=== PATIENT | female | born 1995 | race Hispanic/Latino ===

== ENCOUNTER 2024-05-28 22:30 | Emergency (ER) | payer OTHER ==
--- OUTSIDE RECORDS SUMMARY | 2024-05-28 22:35 | XMS REPORT | Continuity of Care Document ---
Author Name Unknown Address [address] [facility] [place] [address] [facility] Address [address] [facility] [address] [place] [address] Care Team Providers Care Ceo And Co Founder Name Role Phone Hernando Delgadillo Anna Primary Care Physicia n Porsha Aguilar MA Attending Clinician Unavail able EDWIN BREWER Attending Clinician Unavailable MD SOFIE Attending Clinician Unavailab DARRYL Monte Attending Clinician Unavailable LAB90 Attending Clinician Unavailable SHANTELL ROSALES Attending Clinician Unavailable TRACEY STOVER Attending Clinician Unavailable SHERI TENORIO Attending Clinician Unavailable RYNE SCHMIDT Attending Clinician Unavailable LAB47 Attending Clinician Unavailable GINA BARAJAS Attending Clinician Unavailable NAT HOWELL Attending Clinician Unavailable COLT STOVER Attending Clinician Unavailable ANDRE VALDEZ Attending Clinician UnaYESENIA Wilkerson Attending Clinician Unavailable FRANKI CID Attending Clinician Unavailable SETH JAMESON Attending Clinician Unavailab Seth Barreto Attending Clinician [phone] Doctor Unassigned, [place] Attending Clinician U BLAKE Kinsey Attending Clinician Unavailable [facility]ending [facility] Unadestiny Amado ALINE, Hernando Castillo Attending Clinician + HERNANDO AMADO Attending Clinician Unavail able CAROLINE PEDRO Attending Clinician Unav ailarsenio Rendon RN, Lamar Attending Clinician Unavailabl e Risk, Aol-Hxeio-Cj/High Attending Clinician Unav ailable [facility] Pope Attending Clinician [phone] Faculty, Doc [facility] Attending Clinician Kelley Gamez MD, Edwin Devlin Attending Clinician [phone] Ultrasound, [facility] Attending Clinician Unavaildawna Tapia MD, Caroline Attending Clinician + Barbara Clements MD Attending Clinician [phone] Tara Valderrama MD Attending Clinician [phone] Beverly Herr MD Attending Clinician [phone], [facility] Us Room Attending Clinician Unavailab BEVERLY Chahal Attending Clinician Unavailable [facility] Unavaila Chante Gimenez Attending Clinician [phone] Kaley KUHN, Ronda Toney Attending Clinician [phone] CAROLINE PEDRO Admitting Clinician Unav ailarsenio Payers Payer Name Policy Type Policy Number Effective Date Expirati on Date Source SHANT MEJIA [employer] 94 ON 9 [id number] 2023 00:00:00 MEDICAID PENDING PENDING 2019 00:00:00 Problems Condition Name Condition Details Condition Category Status Onset Date Resolution Date Last Treatment Date Treating Clinician Comments Source Iron deficiency anemia due to chronic blood loss Iron deficiency anemia due to chronic blood loss Disease Active 3-14 00:00: 00 Cata magallanes Prediabete s Prediabete s Disease Active 4-16 00:00: 00 Cata Seybold - Externa l Vitamin D deficiency Vitamin D deficiency Disease Active 4-16 00:00: 00 Cata ybold - Externa l History of bilateral tubal ligation History of bilateral tubal ligation Disease Active 3-29 00:00: 00 [facility] 37 weeks gestation of 37 weeks gestation of Disease Active 2-10 00:00: 00 [facility] History of COVID-19 History of COVID-19 Disease Active 1- 00:00: 00 [facility] Monochorio giuliano diamniotic twin gestation in third trimester Monochorio giuliano diamniotic twin gestation in third trimester Disease Active 2019-02 2- 00:00: 00 [facility] Need for Tdap vaccinatio n Need for Tdap vaccinatio n Disease Active 2019-02 00:00: 00 [facility] BMI 28.0-28.9, adult BMI 28.0-28.9, adult Disease Active 8- 00:00: 00 [facility] BMI 28.0-28.9, adult BMI 28.0-28.9, adult Disease Active 8 00:00: 00 [facility] Previous delivery affecting , antepartum Previous delivery affecting , antepartum Disease Active 03-10 00:00: 00 [facility] History of History of Disease Active 03-10 00:00: 00 [facility] Anemia of mother in , antepartum Anemia of mother in , antepartum Disease Active 09-22 00:00: 00 [facility] Anemia of mother in , antepartum Anemia of mother in , antepartum Disease Recurre nce 09-22 00:00: 00 [facility] Multiparit y Multiparit y Disease Recurre nce 09-21 00:00: 00 [facility] Supervisio n of high risk , antepartum Supervisio n of high risk , antepartum Disease Recurre nce 09-21 00:00: 00 [facility] Desires (vaginal after ) trial Desires (vaginal after ) trial Disease Recurre nce 8-08 00:00: 00 [facility] Screening examinatio n for STD (sexually transmitte d disease) Screening examinatio n for STD (sexually transmitte d disease) Disease Active 08-14 00:00: 00 Overview: Formattin g of this note might be different from the original. ICD10 Diagnosis Term Right Of Way Agent Utility [facility] Encounter for surveillan ce of other contracept nivia Encounter for surveillan ce of other contracept nivia Disease Active 08-14 00:00: 00 Overview: Formattin g of this note might be different from the original. ICD10 Diagnosis Term Right Of Way Agent Utility [facility] Anemia of mother in , condition Anemia of mother in , condition Disease Active 07-13 00:00: 00 [facility] care and examinatio n of lactating mother care and examinatio n of lactating mother Disease Active 5 00:00: 00 [facility] Twin gestation in first trimester, unspecifie d multiple gestation type Twin gestation in first trimester, unspecifie d multiple gestation type Disease Resolve d 8-10 00:00: 00 2020-03-09 00:00:00 2020-03-09 15:00:07 [facility] Contracept nivia management Contracept nivia management Disease Resolve d 2017-02 0 00:00: 00 2020-03-09 00:00:00 2020-03-09 14:59:59 [facility] Depo-Prove ra contracept nivia status Depo-Prove ra contracept niiva status Disease Resolve d 2017-02 0 00:00: 00 2020-03-09 00:00:00 2020-03-09 15:00:01 [facility] Routine follow-up Routine follow-up Disease Resolve d 2017-02 0 00:00: 00 2020-03-09 00:00:00 2020-03-09 14:59:57 [facility] Nausea and vomiting during prior to 22 weeks gestation Nausea and vomiting during prior to 22 weeks gestation Disease Resolve d 0 9-06 00:00: 00 2020-03-09 00:00:00 2020-03-09 14:59:48 [facility] 39 weeks gestation of 39 weeks gestation of Disease Resolve d 2017-0 9-15 00:00: 00 2017-11-21 00:00:00 2017-11-21 11:51:24 [facility] Anemia of mother in , antepartum Anemia of mother in , antepartum Disease Resolve d 2017-0 6-12 00:00: 00 2017-11-21 00:00:00 2017-11-21 11:51:25 [facility] Multiparit y Multiparit y Disease Resolve d 0 1-25 00:00: 00 2017-11-21 00:00:00 2017-11-21 11:51:29 [facility] Normal spontaneou s vaginal delivery Normal spontaneou s vaginal delivery Disease Resolve d 0 3-28 00:00: 00 2017-11-21 00:00:00 2017-11-21 11:51:31 [facility] cardiac echogenic focus cardiac echogenic focus Disease Resolve d 0 4-30 00:00: 00 2017-10-31 00:00:00 2017-10-31 08:13:58 [facility] Nausea and vomiting during prior to 22 weeks gestation Nausea and vomiting during prior to 22 weeks gestation Disease Resolve d 0 2-26 00:00: 00 2017-10-31 00:00:00 2017-10-31 08:14:00 [facility] Other general counseling and advice for contracept nivia management Other general counseling and advice for contracept nivia management Disease Resolve d 2016-0 5-15 00:00: 00 2017-03-10 00:00:00 2017-03-10 15:23:06 [facility] Susceptibl e to varicella (non-immun e), currently Susceptibl e to varicella (non-immun e), currently Disease Resolve d 0 8-10 00:00: 2017-03-10 00:00:00 2021-08-30 00:41:45 [facility] Anemia of mother in , condition Anemia of mother in , condition Disease Resolve d 06-07 00:00: 00 2016-06-28 00:00:00 2016-06-28 14:29:34 [facility] care and examinatio n of lactating mother care and examinatio n of lactating mother Disease Resolve d 06-07 00:00: 00 2016-06-28 00:00:00 2016-06-28 14:29:32 [facility] Anemia, Anemia, Disease Resolve d 05-12 00:00: 00 2016-06-07 00:00:00 2016-06-07 09:56:31 [facility] Maternal varicella, non-immune Maternal varicella, non-immune Disease Resolve d 05-11 00:00: 00 2016-06-07 00:00:00 2016-06-07 09:56:05 [facility] Laceration of labial mucosa without complicati on Laceration of labial mucosa without complicati on Disease Resolve d 05-11 00:00: 00 2016-06-07 00:00:00 2016-06-07 09:56:07 [facility] Single live Single live Disease Resolve d 05-11 00:00: 00 2016-06-07 00:00:00 2016-06-07 09:56:10 [facility] Acute urinary retention Acute urinary retention Disease Resolve d 05-11 00:00: 00 2016-06-07 00:00:00 2021-08-30 00:44:59 [facility] Teenage parent Teenage parent Disease Resolve d 05-11 00:00: 00 2016-06-07 00:00:00 2016-06-07 09:56:27 [facility] with history of section, antepartum with history of section, antepartum Disease Resolve d 808 00:00: 00 2016-06-07 00:00:00 2021-08-30 00:41:43 [facility] Disease Resolve d 05-11 00:00: 00 2016-05-11 00:00:00 2016-05-11 15:47:49 [facility] H/O section H/O section Disease Resolve d 05-11 00:00: 00 2016-05-11 00:00:00 2016-05-11 01:51:13 [facility] Contracept nivia management Contracept nivia management Disease Resolve d 08-10 00:00: 00 2015-09-22 00:00:00 2015-09-22 14:48:58 [facility] Breakthrou gh bleeding on Nexplanon Breakthrou gh bleeding on Nexplanon Disease Resolve d 08-14 00:00: 00 2015-09-22 00:00:00 2015-09-22 14:48:57 [facility] Nexplanon removal Nexplanon removal Disease Resolve d 08-10 00:00: 00 2015-09-08 00:00:00 2015-09-08 11:49:04 [facility] Nexplanon in place Nexplanon in place Disease Resolve d 08-14 00:00: 00 2015-08-11 00:00:00 2015-08-11 10:30:39 [facility] Nexplanon insertion Nexplanon insertion Disease Resolve d 03-18 00:00: 00 2014-08-14 00:00:00 2014-08-14 16:14:02 [facility] Depo-Prove ra contracept nivia status Depo-Prove ra contracept nivia status Disease Resolve d 30 00:00: 00 2014-03-18 00:00:00 2014-03-18 09:04:16 [facility] S/P S/P Disease Resolve d 5-15 00:00: 00 2014-03-18 00:00:00 2014-03-18 09:04:08 [facility] Axillary mass Axillary mass Disease Resolve d 5-13 00:00: 00 2014-03-18 00:00:00 2014-03-18 09:04:18 [facility] Ectopic breast tissue Ectopic breast tissue Disease Resolve d 5-13 00:00: 00 2014-03-18 00:00:00 2014-03-18 09:04:14 [facility] Maternal varicella, non-immune Maternal varicella, non-immune Disease Resolve d 0 -17 00:00: 00 2014-03-18 00:00:00 2021-08-30 00:26:31 [facility] Engorgemen t of breasts, condition or complicati on Engorgemen t of breasts, condition or complicati on Disease Resolve d 5-13 00:00: 00 2013-08-10 00:00:00 2013-08-10 10:17:29 [facility] Post-opera tive pain Post-opera tive pain Disease Resolve d 5-15 00:00: 00 2013-07-13 00:00:00 2013-07-13 11:30:41 [facility] Uterine inertia Uterine inertia Disease Resolve d - 00:00: 00 2013-07-13 00:00:00 2013-07-13 11:05:37 [facility] Threatened premature labor, antepartum (644.03) Threatened premature labor, antepartum (644.03) Disease Resolve d 5- 00:00: 00 2013-07-13 00:00:00 2013-07-13 11:26:16 [facility] Pain pelvic Pain pelvic Disease Resolve d 3-18 00:00: 00 2013-07-13 00:00:00 2013-07-13 11:26:28 [facility] High-risk High-risk Disease Resolve d 9-16 00:00: 00 2013-07-13 00:00:00 2021-08-30 00:26:30 [facility] Teen Teen Disease Resolve d 0 9-16 00:00: 00 2013-07-13 00:00:00 2013-07-13 11:26:18 [facility] Irregular menstrual cycle Irregular menstrual cycle Disease Resolve d 10-30 00:00: 00 2013-05-01 00:00:00 2013-05-01 12:56:16 [facility] Flu vaccine need Flu vaccine need Disease Resolve d 10-30 00:00: 00 2013-05-01 00:00:00 2021-08-30 00:26:30 [facility] Rubella immune Rubella immune Disease Resolve d 10-30 00:00: 00 2013-05-01 00:00:00 2013-05-01 12:56:19 [facility] Hyperemesi s gravidarum with metabolic disturbanc e, antepartum Hyperemesi s gravidarum with metabolic disturbanc e, antepartum Disease Resolve d 2012-0203 00:00: 00 2013-02-09 00:00:00 2013-02-09 17:32:10 [facility] Encounter for emergency contracept nivia counseling and prescripti on Encounter for emergency contracept nivia counseling and prescripti on Disease Resolve d 06-15 00:00: 00 2012-10-30 00:00:00 2012-10-30 16:22:09 [facility] Allergies, Adverse Reactions, Alerts Allergy Name Allergy Type Status Severity Reaction(s) Onset Date Inactive Date Treating Clinician Comments Source NO KNOWN ALLERGIE S Drug Class Active [facility] Social History Social Habit Start Date Stop Date Quantity Comments Source ASSERTION [facility] Savanah Delgadillo - External History of tobacco use Cigarette Smoker Cata spring - External Alcohol Comment 2023-06-14 00:00:00 2023-06-14 00:00:00 socially Cata Delgadillo - External Tobacco use and exposure 2023-06-14 00:00:00 2023-06-14 00:00:00 Smokeless tobacco non-user Cata Delgadillo - External Alcohol intake 2023-05-09 00:00:00 2023-05-09 00:00:00 .14 /d Cata Delgadillo - External Exposure to SARS-CoV-2 (event) 2021-06-21 00:00:00 2021-07-01 09:15:00 Not sure [facility] History of Social function 2021-07-01 00:00:00 2021-07-01 00:00:00 [facility] Alcoholic beverage intake 2020-01-07 00:00:00 2020-01-07 00:00:00 0 /d [facility] Sex assigned at 1995 00:00:00 1995 00:00:00 Cata Llamas Smoking Status Start Date Stop Date Source Never smoked tobacco Cata Llamas Ex-smoker 2022-05-26 00:00:00 2022-05-26 00:00:00 Florentin xiao Leona Johnson External Medications Ordered Medication Name Filled Medication Name Start Date Stop Date Current Medication? Ordering Clinician Indication Dosage Frequency Signature (SIG) Comments Components Source Docusate Sodium 100 MG oral Capsule 09-18 00:00: 00 Yes [id number] 100mg QD Take 1 capsule (100 mg total) by mouth daily. Cata magallanes Ibuprofen (MOTRIN) 600 MG oral Tablet 09-18 00:00: 00 Yes [id number] 600mg Q.25D Take 1 tablet (600 mg total) by mouth every 6 hours as needed for pain. Cata magallanes Iron Dextran (INFED) 25 mg in sodium chloride 0.9 % 50 mL infusion 06-26 16:30: 00 06-26 16:12 :00 No [id number] 25mg 25 mg, at 300 mL/hr, Administer over 10 Minutes, intravenou s, ONCE, On Tue06/27/23 at 1130, For 1 dose, Observe the patient for at least 1 hour after test dose administra tion. Monitor and record vital signs at 15 minutes, 30 minutes, and 60 minutes for 1 hour observatio n. Cata magallanes Iron Dextran (INFED) 975 mg in sodium chloride 0.9 % 500 mL infusion 06-26 16:00: 00 06-26 18:19 :00 No [id number] 975mg 975 mg, at 500 mL/hr, Administer over 60 Minutes, intravenou s, ONCE, On Tue06/27/23 at 1100, For 1 dose, Give 60 minutes after test dose. Solumedrol is recommende d only if patient has: Asthma, or Allergy to more than one drug, or History of inflammato ry arthritis. Solu-Medro l is recommende d only if the patient has: None of the below. 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 Cata magallanes Tranexamic Acid 650 MG oral Tablet 03 00:00: 00 Yes Please take 2 tabs three times a day for 5 days at the start of your period. Cata magallanes Cholecalcif yvan (Vitamin D) 50 MCG (2000 UT) oral Capsule 30 00:00: 00 Yes [id number] 2000U QD Take 1 capsule (2,000 units total) by mouth daily. Cata magallanes Topiramate 25 MG oral Tablet 05-10 00:00: 00 Yes [id number] 25mg Q.5D Take 1 tablet (25 mg total) by mouth 2 times daily. Cata magallanes Ferrous Sulfate 325 (65 Fe) MG oral Tablet 04-13 10:58: 04 04-13 00:00 :00 No 325mg Take 1 tablet (325 mg total) by mouth daily (with breakfast) . Cata magallanes Ferrous Gluconate 239 (27 Fe) MG oral Tablet 04-13 00:00: 00 Yes [id number] 1{tbl} Take 1 tablet by mouth daily. Cata magallanes Topiramate 25 MG oral Tablet 04-13 00:00: 00 Yes [id number] 25mg Take 1 tablet (25 mg total) by mouth 2 times daily. Cata Caala elpidio Ferrous Sulfate 325 (65 Fe) MG oral Tablet 11-10 13:23: 02 Yes 325mg Take 1 tablet (325 mg total) by mouth daily (with breakfast) . Cata Caala elpidio Ferrous Sulfate 325 (65 Fe) MG oral Tablet 12 10:44: 40 Yes 325mg Take 1 tablet (325 mg total) by mouth daily (with breakfast) Cata magallanes Ferrous Sulfate 325 (65 Fe) MG oral Tablet 06-28 09:02: 40 Yes 325mg Take 1 tablet (325 mg total) by mouth daily (with breakfast) Cata magallanes Phentermine HCl 37.5 MG oral Tablet 06-28 00:00: 00 04-13 00:00 :00 No [id number] 37.5mg Take 1 tablet (37.5 mg total) by mouth every morning (before breakfast) Patient is taking 1/2 tab Cata magallanes Vitamin D, Ergocalcife rol, 1.25 MG (89782 UT) oral Capsule 05-30 00:00: 00 Yes [id number] 34561J Take 1 capsule (50,000 units total) by mouth once a week Cata magallanes Phentermine HCl 37.5 MG oral Tablet 05-27 00:00: 00 Yes [id number] 37.5mg Take 1 tablet (37.5 mg total) by mouth every morning (before breakfast) Cata magallanes No known medications 07-01 10:34: 28 No [facility] Immunizations Ordered Immunization Name Filled Immunization Name Date Status Comments Source TDAP 2020-02-11 00:00:00 Completed [facility] Tdap- (Boostrix, Adacel) 2020-02-11 00:00:00 Completed Cata Johnson External Tdap- (Boostrix, Adacel) 2020-02-11 00:00:00 Completed Cata Johnson External Tdap- (Boostrix, Adacel) 2020-02-11 00:00:00 Gaudencio Llamas Varicella (varivax)(chicken pox) 2016-05-12 00:00:00 Completed [facility] Varicella (varivax)(chicken pox) 2016-05-12 00:00:00 Completed [facility] Varicella Vaccine 2016-05-12 00:00:00 Completed Cata Seybold - External Varicella Vaccine 2016-05-12 00:00:00 Completed Cata Seybold - External Varicella Vaccine 2016-05-12 00:00:00 Completed Cata Seybold - External TDAP 2016-03-02 00:00:00 Completed [facility] TDAP 2016-03-02 00:00:00 Completed Tdap- (Boostrix, Adacel) 2016-03-02 00:00:00 Completed Cata Seybold - External Tdap- (Boostrix, Adacel) 2016-03-02 00:00:00 Completed Cata Seybold - External Tdap- (Boostrix, Adacel) 2016-03-02 00:00:00 Completed Cata Seybold - External Influenza Virus Vaccine Quad IM 3+ YRS 2015-11-17 00:00:00 Completed [facility] Influenza Virus Vaccine Quad IM 3+ YRS 2015-11-17 00:00:00 Completed Influenza Virus Vaccine, No Preserv, age 6 months and up 2015-11-17 00:00:00 Completed Cata Seybold - External Influenza Virus Vaccine, No Preserv, age 6 months and up 2015-11-17 00:00:00 Completed Cata Seybold - External Influenza Virus Vaccine, No Preserv, age 6 months and up 2015-11-17 00:00:00 Completed Cata Seybold - External Varicella (varivax)(chicken pox) 2013-08-10 00:00:00 Completed [facility] Varicella (varivax)(chicken pox) 2013-08-10 00:00:00 Completed Varicella Vaccine 2013-08-10 00:00:00 Completed Cata Seybold - External Varicella Vaccine 2013-08-10 00:00:00 Completed Cata Seybold - External Varicella Vaccine 2013-08-10 00:00:00 Completed Cata Seybold - External Varicella (varivax)(chicken pox) 2013-06-22 00:00:00 Completed [facility] Varicella (varivax)(chicken pox) 2013-06-22 00:00:00 Completed [facility] Varicella Vaccine 2013-06-22 00:00:00 Completed Cata Seybold - External Varicella Vaccine 2013-06-22 00:00:00 Completed Cata Seybold - External Varicella Vaccine 2013-06-22 00:00:00 Completed Cata Andrewsybold - External TDAP 2013-04-02 00:00:00 Completed [facility] TDAP 2013-04-02 00:00:00 Completed Tdap- (Boostrix, Adacel) 2013-04-02 00:00:00 Completed Cata Seybold - External Tdap- (Boostrix, Adacel) 2013-04-02 00:00:00 Completed Cata Seybold - External Tdap- (Boostrix, Adacel) 2013-04-02 00:00:00 Completed Cata Seybold - External Influenza Virus Vaccine 2012-10-30 00:00:00 Completed [facility] Influenza Virus Vaccine 2012-10-30 00:00:00 Completed [facility] Influenza Virus Vaccine, Unspecified Formulation 2012-10-30 00:00:00 Completed Cata Seybold - External Influenza Virus Vaccine, Unspecified Formulation 2012-10-30 00:00:00 Completed Cata Seybold - External Influenza Virus Vaccine, Unspecified Formulation 2012-10-30 00:00:00 Completed Cata Seybold - External H1n1 Vaccine 2009-01-13 00:00:00 Completed [facility] Influenza Virus Vaccine - Whole 2009-01-13 00:00:00 Completed [facility] H1n1 Vaccine 2009-01-13 00:00:00 Completed Influenza Virus Vaccine - Whole 2009-01-13 00:00:00 Completed Influenza, Seasonal, Injectable 2009-01-13 00:00:00 Completed Cata Andrewsybold - External [id number] 2009-01-13 00:00:00 Completed Cata Andrewsybold - External Influenza, Seasonal, Injectable 2009-01-13 00:00:00 Completed Cata Seybold - External [id number]-[id number] 2009-01-13 00:00:00 Completed Cata Seybold - External Influenza, Seasonal, Injectable 2009-01-13 00:00:00 Completed Cata Seybold - External [id number] 2009-01-13 00:00:00 Completed Cata Andrewsybold - External HPV 2008-10-24 00:00:00 Completed [facility] HPV 2008-10-24 00:00:00 Completed HPV 4 (Human Papillomavirus) 2008-10-24 00:00:00 Completed Cata Gibsonold - External HPV 4 (Human Papillomavirus) 2008-10-24 00:00:00 Completed Cata Seybold - External HPV 4 (Human Papillomavirus) 2008-10-24 00:00:00 Completed Cata Seybold - External HEPATITIS A- PEDI/ADOL 2008-06-07 00:00:00 Completed Cata Seybold - External Meningococcal Vaccine- Conjugate(Menactra) 2008-06-07 00:00:00 Completed Cata Seybold - External Tdap- (Boostrix, Adacel) 2008-06-07 00:00:00 Completed Cata Seybold - External HEPATITIS A- PEDI/ADOL 2008-06-07 00:00:00 Completed Cata Seybold - External Meningococcal Vaccine- Conjugate(Menactra) 2008-06-07 00:00:00 Completed Cata Seybold - External Tdap- (Boostrix, Adacel) 2008-06-07 00:00:00 Completed Cata Seybold - External HEPATITIS A- PEDI/ADOL 2008-06-07 00:00:00 Completed Cata Seybold - External Meningococcal Vaccine- Conjugate(Menactra) 2008-06-07 00:00:00 Completed Cata Seybold - External Tdap- (Boostrix, Adacel) 2008-06-07 00:00:00 Completed Cata Seybold - External HEPATITIS A 2007-10-03 00:00:00 Completed [facility] HPV 2007-10-03 00:00:00 Completed [facility] Meningococcal Vaccine 2007-10-03 00:00:00 Completed [facility] TDAP 2007-10-03 00:00:00 Completed [facility] Varicella (varivax)(chicken pox) 2007-10-03 00:00:00 Completed [facility] HEPATITIS A 2007-10-03 00:00:00 Completed HPV 2007-10-03 00:00:00 Completed Meningococcal Vaccine 2007-10-03 00:00:00 Completed TDAP 2007-10-03 00:00:00 Completed Varicella (varivax)(chicken pox) 2007-10-03 00:00:00 Completed HPV 4 (Human Papillomavirus) 2007-10-03 00:00:00 Completed Cata Seybold - External Meningococcal Vaccine Polysaccharide 2007-10-03 00:00:00 Completed Cata Gibsonold - External Tdap- (Boostrix, Adacel) 2007-10-03 00:00:00 Completed Cata Andrewsybold - External Varicella Vaccine 2007-10-03 00:00:00 Completed Cata Andrewsybold - External HEPATITIS A- PEDI/ADOL 2007-10-03 00:00:00 Completed Cata Andrewsybold - External HPV 4 (Human Papillomavirus) 2007-10-03 00:00:00 Completed Cata Andrewsybold - External Meningococcal Vaccine Polysaccharide 2007-10-03 00:00:00 Completed Cata Seybold - External Tdap- (Boostrix, Adacel) 2007-10-03 00:00:00 Completed Cata Andrewsybold - External Varicella Vaccine 2007-10-03 00:00:00 Completed Cata Andrewsybold - External HEPATITIS A- PEDI/ADOL 2007-10-03 00:00:00 Completed Cata Gibsonold - External HPV 4 (Human Papillomavirus) 2007-10-03 00:00:00 Completed Cata Delgadillo - External Meningococcal Vaccine Polysaccharide 2007-10-03 00:00:00 Completed Cata Andrewsybold - External Tdap- (Boostrix, Adacel) 2007-10-03 00:00:00 Completed Cata Andrewsybclementine - External Varicella Vaccine 2007-10-03 00:00:00 Completed Cata Andrewsybold - External HEPATITIS A- PEDI/ADOL 2007-10-03 00:00:00 Completed Cata Gibsonold - External HEPATITIS A 2006-09-23 00:00:00 Completed [facility] HPV 2006-09-23 00:00:00 Completed [facility] HEPATITIS A 2006-09-23 00:00:00 Completed [facility] HPV 2006-09-23 00:00:00 Completed HPV 4 (Human Papillomavirus) 2006-09-23 00:00:00 Completed Cata Andrewsybold - External HEPATITIS A- PEDI/ADOL 2006-09-23 00:00:00 Completed Cata Andrewsybold - External HPV 4 (Human Papillomavirus) 2006-09-23 00:00:00 Completed Cata Andrewsybold - External HEPATITIS A- PEDI/ADOL 2006-09-23 00:00:00 Completed Cata Andrewsybold - External HPV 4 (Human Papillomavirus) 2006-09-23 00:00:00 Completed Cata Gibsonold - External HEPATITIS A- PEDI/ADOL 2006-09-23 00:00:00 Completed Cata Seybold - External Varicella Vaccine 2000-12-06 00:00:00 Completed Cata Seybold - External Varicella Vaccine 2000-12-06 00:00:00 Completed Cata Seybold - External Varicella Vaccine 2000-12-06 00:00:00 Completed Cata Seybold - External DTaP Unspecified 2000-09-21 00:00:00 Completed Cata Seybold - External Hepatitis B, Adolescent Or Pediatric 2000-09-21 00:00:00 Completed Cata Seybold - External MMR- Measles, Mumps, Rubella 2000-09-21 00:00:00 Completed Cata Seybold - External IPV- Inactivated Polio Vaccine 2000-09-21 00:00:00 Completed Cata Seybold - External DTaP Unspecified 2000-09-21 00:00:00 Completed Cata Seybold - External Hepatitis B, Adolescent Or Pediatric 2000-09-21 00:00:00 Completed Cata Seybold - External MMR- Measles, Mumps, Rubella 2000-09-21 00:00:00 Completed Cata Seybold - External IPV- Inactivated Polio Vaccine 2000-09-21 00:00:00 Completed Cata Seybold - External DTaP Unspecified 2000-09-21 00:00:00 Completed Cata Seybold - External Hepatitis B, Adolescent Or Pediatric 2000-09-21 00:00:00 Completed Cata Seybold - External MMR- Measles, Mumps, Rubella 2000-09-21 00:00:00 Completed Cata Seybold - External IPV- Inactivated Polio Vaccine 2000-09-21 00:00:00 Completed Cata Seybold - External Hepatitis B, Adolescent Or Pediatric 1998-10-08 00:00:00 Completed Cata Seybold - External Hepatitis B, Adolescent Or Pediatric 1998-10-08 00:00:00 Completed Cata Seybold - External Hepatitis B, Adolescent Or Pediatric 1998-10-08 00:00:00 Completed Cata Seybold - External DTaP Unspecified 1998-06-11 00:00:00 Completed Cata Seybold - External Hepatitis B, Adolescent Or Pediatric 1998-06-11 00:00:00 Completed Cata Sekaylanold - External HIB- Haemophilus Influenzae Type B 1998-06-11 00:00:00 Completed Cata Seybold - External MMR- Measles, Mumps, Rubella 1998-06-11 00:00:00 Completed Cata Seybold - External DTaP Unspecified 1998-06-11 00:00:00 Completed Cata Gibsonold - External Hepatitis B, Adolescent Or Pediatric 1998-06-11 00:00:00 Completed Cata Seybold - External HIB- Haemophilus Influenzae Type B 1998-06-11 00:00:00 Completed Cata Seybold - External MMR- Measles, Mumps, Rubella 1998-06-11 00:00:00 Completed Cata Seybold - External DTaP Unspecified 1998-06-11 00:00:00 Completed Cata Seybold - External Hepatitis B, Adolescent Or Pediatric 1998-06-11 00:00:00 Completed Cata Seybold - External HIB- Haemophilus Influenzae Type B 1998-06-11 00:00:00 Completed Cata Seybold - External MMR- Measles, Mumps, Rubella 1998-06-11 00:00:00 Completed Cata Seybold - External Measles 1997-05-09 00:00:00 Completed Cata Seybold - External Measles 1997-05-09 00:00:00 Completed Cata Seybold - External Measles 1997-05-09 00:00:00 Completed Cata Delgadlilo - External DTP- Diphtheria,Tetanus,P ertussis 1997-02-20 00:00:00 Completed Cata Delgadillo - External OPV- Oral Polio Vaccine 1997-02-20 00:00:00 Completed Cata Seybold - External DTP- Diphtheria,Tetanus,P ertussis 1997-02-20 00:00:00 Completed Cata Seybold - External OPV- Oral Polio Vaccine 1997-02-20 00:00:00 Completed Cata Seybold - External DTP- Diphtheria,Tetanus,P ertussis 1997-02-20 00:00:00 Completed Cata Andrewsybold - External OPV- Oral Polio Vaccine 1997-02-20 00:00:00 Completed Cata Gibsonold - External DTP- Diphtheria,Tetanus,P ertussis 1996 00:00:00 Completed Cata Gibsonold - External OPV- Oral Polio Vaccine 1996 00:00:00 Completed Cata Delgadillo - External DTP- Diphtheria,Tetanus,P ertussis 1996 00:00:00 Completed Cata Gibsonold - External OPV- Oral Polio Vaccine 1996 00:00:00 Completed Cata Delgadillo - External DTP- Diphtheria,Tetanus,P ertussis 1996 00:00:00 Completed Cata Gibsonold - External OPV- Oral Polio Vaccine 1996 00:00:00 Completed Cata Gibsonold - External DTP- Diphtheria,Tetanus,P ertussis 1996 00:00:00 Completed Cata Delgadillo - External OPV- Oral Polio Vaccine 1996 00:00:00 Completed Cata Delgadillo - External DTP- Diphtheria,Tetanus,P ertussis 1996 00:00:00 Completed Cata Delgadillo - External OPV- Oral Polio Vaccine 1996 00:00:00 Completed Cata Delgadillo - External DTP- Diphtheria,Tetanus,P ertussis 1996 00:00:00 Completed Cata Delgadillo - External OPV- Oral Polio Vaccine 1996 00:00:00 Completed Cata Delgadillo - External DTaP Unspecified Unknown Completed Yonathan Johnson External DTP- Diphtheria,Tetanus,P ertussis Unknown Completed Cata Johnson External HEPATITIS A- PEDI/ADOL Unknown Completed Cata Johnson External Hepatitis B, Adolescent Or Pediatric Unknown Completed Cata Delgadillo - External HIB- Haemophilus Influenzae Type B Unknown Completed Cata caal - External Meningococcal Vaccine- Conjugate(Menactra) Unknown Completed Cata maza - External Measles Unknown Completed Cata caal - External MMR- Measles, Mumps, Rubella Unknown Completed Cata Johnson External IPV- Inactivated Polio Vaccine Unknown Completed Cata Johnson External OPV- Oral Polio Vaccine Unknown Completed Cata Johnson External Tdap- (Boostrix, Adacel) Unknown Completed Cata Delgadillo - External Varicella Vaccine Unknown Completed Uziel Delgadillo - External [id number] Unknown Completed Cata caal - External HPV 4 (Human Papillomavirus) Unknown Completed Cata Gibson ld - External Influenza, Seasonal, Injectable Unknown [facility] Influ[facility] Virus Vaccine, No Preserv, age 6 months and up Unknown Completed Cata Griffin [facility] External Influenza Virus Vaccine, Unspecified Formulation Unknown Com[facility] Meningococcal Vaccine Polysaccharide Unknown Completed Cata ol d - External DTaP Unspecified Unknown Completed Yonathan [facility] External DTP- Diphtheria,Tetanus,P ertussis Unknown Com[facility] HEPATITIS A- PEDI/ADOL Unknown Completed Cata [facility] - External Hepatitis B, Adolescent Or Pediatric Unknown Com[facility] HIB- Haemophilus Influenzae Type B Unknown Completed Cata caal - External Meningococcal Vaccine- Conjugate(Menactra) Unknown [facility] Measles Unknown Completed Cata caal - External MMR- Measles, Mumps, Rubella Unknown [facility] IPV- Inactivated Polio Vaccine Unknown Completed [facility]ata [facility] External OPV- Oral Polio Vaccine Unknown [facility] Tdap- (Boostrix, Adacel) Unknown Completed [facility] External Varicella Vaccine Unknown [facility] [id number] Unknown Completed Cata caal External HPV 4 (Human Papillomavirus) Unknown [facility] Influenza, Seasonal, Injectable Unknown [facility] Influenza Virus Vaccine, No Preserv, age 6 months and up Unknown Completed [facility] Influenza Virus Vaccine, Unspecified Formulation Unknown Com[facility] Meningococcal Vaccine Polysaccharide Unknown Completed Cata Andrewsol d - External DTaP Unspecified Unknown Completed Yonathan salamanca [facility] - External DTP- Diphtheria,Tetanus,P ertussis Unknown Completed [facility] External HEPATITIS A- PEDI/ADOL Unknown Completed [facility] External Hepatitis B, Adolescent Or Pediatric Unknown Com[facility] HIB- Haemophilus Influenzae Type B Unknown Completed Cata caal - External Meningococcal Vaccine- Conjugate(Menactra) Unknown Completed [facility] eybold - External Measles Unknown Completed Cata afua - External MMR- Measles, Mumps, Rubella Unknown Completed [facility] - External IPV- Inactivated Polio Vaccine Unknown Completed [facility] - External OPV- Oral Polio Vaccine Unknown Completed [facility] External Tdap- (Boostrix, Adacel) Unknown Completed [facility] - External Varicella Vaccine Unknown [facility] [id number] Unknown Completed Cata Jadyn caal - External HPV 4 (Human Papillomavirus) Unknown Completed [facility] - External Influenza, Seasonal, Injectable Unknown Completed [facility] External Influenza Virus Vaccine, No Preserv, age 6 months and up Unknown Completed [facility] eybold - External Influenza Virus Vaccine, Unspecified Formulation Unknown Completed [facility] External Meningococcal Vaccine Polysaccharide Unknown [facility] Unspecified Unknown Completed [facility] - External DTP- Diphtheria,Tetanus,P ertussis Unknown Completed [facility] External HEPATITIS A- PEDI/ADOL Unknown Completed [facility] External Hepatitis B, Adolescent Or Pediatric Unknown Completed [facility] - External HIB- Haemophilus Influenzae Type B Unknown Completed Catajadyn caal External Meningococcal Vaccine- Conjugate(Menactra) Unknown [facility] Completed [facility] afua - External MMR- Measles, Mumps, Rubella Unknown Completed [facility] External IPV- Inactivated Polio Vaccine Unknown Completed [facility] External OPV- Oral Polio Vaccine Unknown Completed [facility] External Tdap- (Boostrix, Adacel) Unknown Completed [facility] External Varicella Vaccine Unknown [facility] [id number] Unknown Completed [facility] afua External HPV 4 (Human Papillomavirus) Unknown [facility] External Influenza, Seasonal, Injectable Unknown Completed [facility] - External Influenza Virus Vaccine, No Preserv, age 6 months and up Unknown Completed [facility] Influenza Virus Vaccine, Unspecified Formulation Unknown Completed [facility] External Meningococcal Vaccine Polysaccharide Unknown [facility] DTaP Unspecified Unknown Completed [facility] - External DTP- Diphtheria,Tetanus,P ertussis Unknown Com[facility] HEPATITIS A- PEDI/ADOL Unknown Completed Cata Seybold - External Hepatitis B, Adolescent Or Pediatric Unknown Completed Cata Andrewsold - External HIB- Haemophilus Influenzae Type B Unknown Completed Cata caal - External Meningococcal Vaccine- Conjugate(Menactra) Unknown Completed Cata Griffin [facility] - External Measles Unknown Completed Cata caal - External MMR- Measles, Mumps, Rubella Unknown Completed Cata Andrewsybold - External IPV- Inactivated Polio Vaccine Unknown Completed Cata Andrewsybold - External OPV- Oral Polio Vaccine Unknown Com[facility] Tdap- (Boostrix, Adacel) Unknown Com[facility] External Varicella Vaccine Unknown Completed Uziel atkinsoney Seybold - External [id number] Unknown Completed Cata caal - External HPV 4 (Human Papillomavirus) Unknown [facility] - External Influenza, Seasonal, Injectable Unknown Com[facility] Influenza Virus Vaccine, No Preserv, age 6 months and up Unknown Completed Cata Griffin [facility] External Influenza Virus Vaccine, Unspecified Formulation Unknown Com[facility] Meningococcal Vaccine Polysaccharide Unknown Com[facility] - External DTaP Unspecified Unknown Completed Yonathan salamanca [facility] - External DTP- Diphtheria,Tetanus,P ertussis Unknown Completed [facility]ata [facility] - External HEPATITIS A- PEDI/ADOL Unknown Completed Cata [facility] - External Hepatitis B, Adolescent Or Pediatric Unknown Com[facility] HIB- Haemophilus Influenzae Type B Unknown Completed Cata caal - External Meningococcal Vaccine- Conjugate(Menactra) Unknown Completed Cata collazobold - External Measles Unknown Completed Cata caal - External MMR- Measles, Mumps, Rubella Unknown Com[facility] IPV- Inactivated Polio Vaccine Unknown Completed Cata Andrewsold - External OPV- Oral Polio Vaccine Unknown Completed Cata Andrewsold - External Tdap- (Boostrix, Adacel) Unknown Com[facility] External Varicella Vaccine Unknown Completed Uziel lsey Seybold - External [id number] Unknown Completed Cata caal - External HPV 4 (Human Papillomavirus) Unknown Completed Cata Gibson ld - External Influenza, Seasonal, Injectable Unknown Completed Cata Andrewsybold - External Influenza Virus Vaccine, No Preserv, age 6 months and up Unknown Completed Cata Griffin eybold - External Influenza Virus Vaccine, Unspecified Formulation Unknown Completed Cata ybold - External Meningococcal Vaccine Polysaccharide Unknown Completed Cata ybol d - External DTaP Unspecified Unknown Completed Yonathan salamanca ybold - External DTP- Diphtheria,Tetanus,P ertussis Unknown Completed Cata Seybold - External HEPATITIS A- PEDI/ADOL Unknown [facility] Hepatitis B, Adolescent Or Pediatric Unknown Completed Cata ybold - External HIB- Haemophilus Influenzae Type B Unknown Completed Cata Salamanca bold - External Meningococcal Vaccine- Conjugate(Menactra) Unknown Completed Cata Griffin eybold - External Measles Unknown Completed Cata Salamanca bold - External MMR- Measles, Mumps, Rubella Unknown Completed Cata ybold - External IPV- Inactivated Polio Vaccine Unknown [facility] OPV- Oral Polio Vaccine Unknown Completed [facility]ata [facility] External Tdap- (Boostrix, Adacel) Unknown Com[facility] External Varicella Vaccine Unknown Completed [facility] ybold - External [id number] Unknown Completed Cata Salamanca [facility] - External HPV 4 (Human Papillomavirus) Unknown Completed Cata Gibsono ld - External Influenza, Seasonal, Injectable Unknown [facility] Influenza Virus Vaccine, No Preserv, age 6 months and up Unknown Completed Cata Griffin [facility] External Influenza Virus Vaccine, Unspecified Formulation Unknown Completed [facility]ata [facility] External Meningococcal Vaccine Polysaccharide Unknown Completed Cata Andrewsol d - External DTaP Unspecified Unknown Completed Yonathan salamanca [facility] - External DTP- Diphtheria,Tetanus,P ertussis Unknown Com[facility] External HEPATITIS A- PEDI/ADOL Unknown Com[facility] External Hepatitis B, Adolescent Or Pediatric Unknown Completed Cata ybold - External HIB- Haemophilus Influenzae Type B Unknown Completed Cata Salamanca bold - External Meningococcal Vaccine- Conjugate(Menactra) Unknown Completed Cata Griffin eybold - External Measles Unknown Completed Cata Andrews bold - External MMR- Measles, Mumps, Rubella Unknown Completed Cata ybold - External IPV- Inactivated Polio Vaccine Unknown Completed Cata ybold - External OPV- Oral Polio Vaccine Unknown [facility] External Tdap- (Boostrix, Adacel) Unknown Completed Cata Seybold - External Varicella Vaccine Unknown Completed Uziel aponte Seybold - External [id number] Unknown Completed Cata caal - External HPV 4 (Human Papillomavirus) Unknown Completed [facility] - External Influenza, Seasonal, Injectable Unknown Completed Cata Andrewsold - External Influenza Virus Vaccine, No Preserv, age 6 months and up Unknown Completed Cata Gaby eybold - External Influenza Virus Vaccine, Unspecified Formulation Unknown Completed Cata Gibsonold - External Meningococcal Vaccine Polysaccharide Unknown Completed Cata Seol d - External DTaP Unspecified Unknown Com[facility] DTP- Diphtheria,Tetanus,P ertussis Unknown Completed Cata Seybold - External HEPATITIS A- PEDI/ADOL Unknown [facility] Hepatitis B, Adolescent Or Pediatric Unknown Completed Catajadyn Gibsonold - External HIB- Haemophilus Influenzae Type B Unknown Completed Cata caal - External Meningococcal Vaccine- Conjugate(Menactra) Unknown Completed Cata Gaby eybold - External Measles Unknown Completed Cata caal - External MMR- Measles, Mumps, Rubella Unknown Completed [facility] External IPV- Inactivated Polio Vaccine Unknown Com[facility] External OPV- Oral Polio Vaccine Unknown Com[facility] External Tdap- (Boostrix, Adacel) Unknown Com[facility] Varicella Vaccine Unknown Completed Uziel aponte Seybold - External [id number] Unknown Completed Cata caal - External HPV 4 (Human Papillomavirus) Unknown Completed [facility]ata [facility] - External Influenza, Seasonal, Injectable Unknown Completed Cata Gibsonold - External Influenza Virus Vaccine, No Preserv, age 6 months and up Unknown Completed Cata Gaby eybold - External Influenza Virus Vaccine, Unspecified Formulation Unknown Completed [facility] - External Meningococcal Vaccine Polysaccharide Unknown Completed Cata Gibsonol d - External DTaP Unspecified Unknown Completed Yonathan salamanca Seold - External DTP- Diphtheria,Tetanus,P ertussis Unknown Completed Cata ybold - External HEPATITIS A- PEDI/ADOL Unknown [facility] Hepatitis B, Adolescent Or Pediatric Unknown Completed Cata Andrewsybold - External HIB- Haemophilus Influenzae Type B Unknown Completed Cata caal - External Meningococcal Vaccine- Conjugate(Menactra) Unknown Completed [facility] eybold - External Measles Unknown Completed Cata Salamanca afua - External MMR- Measles, Mumps, Rubella Unknown Completed Cata Delgadillo - External IPV- Inactivated Polio Vaccine Unknown Completed Cata Delgadillo - External OPV- Oral Polio Vaccine Unknown Completed Cata Andrewskaylanclementine - External Tdap- (Boostrix, Adacel) Unknown Completed Cata Delgadillo - External Varicella Vaccine Unknown Completed Uziel atkinsonzay Gibsonold - External [id number] Unknown Completed Cata Semichael afua - External HPV 4 (Human Papillomavirus) Unknown Completed Cata Andrewsliliya ld - External Influenza, Seasonal, Injectable Unknown Completed Cata Delgadillo - External Influenza Virus Vaccine, No Preserv, age 6 months and up Unknown Completed Cata S eybold - External Influenza Virus Vaccine, Unspecified Formulation Unknown Completed Cata Delgadillo Elizabeth External Meningococcal Vaccine Polysaccharide Unknown Completed Cata Sekaylanjessica d - External Vital Signs Vital Name Observation Time Observation Value Comments S ource Systolic blood pressure 2023-09-29 16:41:00 106 mm[Hg] Cata Gibsono ld - External Diastolic blood pressure 2023-09-29 16:41:00 62 mm[Hg] Cata Gibsono ld - External Heart rate 2023-09-29 16:41:00 67 /min Yonathanse y Seybold - External Body weight 2023-09-29 16:41:00 75.751 kg Savanah ey Seybold - External BMI 2023-09-29 16:41:00 28.67 kg/m2 Savanah ey Seybold - External Systolic blood pressure 2023-09-05 15:09:00 108 mm[Hg] Cata Gibsono ld - External Diastolic blood pressure 2023-09-05 15:09:00 60 mm[Hg] Cata Andrewsybo ld - External Heart rate 2023-09-05 15:09:00 62 /min Yonathanse y Seybold - External Respiratory rate 2023-09-05 15:09:00 16 /min Cata Andrewsybold - External Body height 2023-09-05 15:09:00 162.6 cm Savanah ey Seybold - External Body weight 2023-09-05 15:09:00 75.751 kg Savanah ey Seybold - External BMI 2023-09-05 15:09:00 28.67 kg/m2 Savanah ey Seybold - External Systolic blood pressure 2023-06-27 18:03:00 105 mm[Hg] Cata Seybo ld - External Diastolic blood pressure 2023-06-27 18:03:00 61 mm[Hg] Cata Seybo ld - External Heart rate 2023-06-27 18:03:00 67 /min Kelse y Seybold - External Body temperature 2023-06-27 15:18:00 36.28 Roopa Cata Seybold - External Respiratory rate 2023-06-27 15:18:00 18 /min Cata Seybold - External Body height 2023-06-27 15:18:00 162.6 cm Savanah ey Seybold - External Body weight 2023-06-27 15:18:00 77.111 kg Savanah ey Seybold - External BMI 2023-06-27 15:18:00 29.18 kg/m2 Savanah ey Seybold - External Oxygen saturation in Arterial blood by Pulse oximetry 2023-06-27 15:18:00 100 /min Cata Seybo ld - External Systolic blood pressure 2023-06-14 15:28:00 104 mm[Hg] Cata Seybo ld - External Diastolic blood pressure 2023-06-14 15:28:00 60 mm[Hg] Cata Seybo ld - External Heart rate 2023-06-14 15:28:00 69 /min Yonathanse y Seybold - External Body temperature 2023-06-14 15:28:00 36.67 Roopa Cata Seybold - External Respiratory rate 2023-06-14 15:28:00 15 /min Cata Seybold - External Body height 2023-06-14 15:28:00 162.6 cm Savanah ey Seybold - External Body weight 2023-06-14 15:28:00 77.111 kg Savanah ey Seybold - External BMI 2023-06-14 15:28:00 29.18 kg/m2 Savanah ey Seybold - External Systolic blood pressure 2023-05-09 18:52:00 118 mm[Hg] Cata Seybo ld - External Diastolic blood pressure 2023-05-09 18:52:00 72 mm[Hg] Cata Seybo ld - External Heart rate 2023-05-09 18:52:00 69 /min Kelse y Seybold - External Respiratory rate 2023-05-09 18:52:00 16 /min Cata Seybold - External Body height 2023-05-09 18:52:00 162.6 cm Savanah ey Seybold - External Body weight 2023-05-09 18:52:00 77.111 kg Savanah ey Seybold - External BMI 2023-05-09 18:52:00 29.18 kg/m2 Savanah ey Seybold - External Oxygen saturation in Arterial blood by Pulse oximetry 2023-05-09 18:52:00 98 /min Cata Seybo ld - External Systolic blood pressure 2023-04-13 16:11:00 102 mm[Hg] Cata Seybo ld - External Diastolic blood pressure 2023-04-13 16:11:00 62 mm[Hg] Cata Seybo ld - External Heart rate 2023-04-13 16:11:00 71 /min Kelse y Seybold - External Body temperature 2023-04-13 16:11:00 36.39 Roopa Cata Seybold - External Respiratory rate 2023-04-13 16:11:00 14 /min Cata Seybold - External Body height 2023-04-13 16:11:00 162.6 cm Savanah ey Seybold - External Body weight 2023-04-13 16:11:00 74.844 kg Savanah ey Seybold - External BMI 2023-04-13 16:11:00 28.32 kg/m2 Savanah ey Seybold - External Body height 2022-07-26 15:43:00 162.6 cm Savanah ey Seybold - External Body weight 2022-07-26 15:43:00 73.483 kg Savanah ey Seybold - External BMI 2022-07-26 15:43:00 27.81 kg/m2 Savanah ey Seybold - External Systolic blood pressure 2022-06-28 13:59:00 104 mm[Hg] Cata Seybo ld - External Diastolic blood pressure 2022-06-28 13:59:00 64 mm[Hg] Cata Seybo ld - External Heart rate 2022-06-28 13:59:00 69 /min Kelse y Seybold - External Body temperature 2022-06-28 13:59:00 36.83 Roopa Cata Seybold - External Respiratory rate 2022-06-28 13:59:00 16 /min Cata Seybold - External Body height 2022-06-28 13:59:00 162.6 cm Savanah ey Seybold - External Body weight 2022-06-28 13:59:00 76.658 kg Savanah ey Seybold - External BMI 2022-06-28 13:59:00 29.01 kg/m2 Savanah ey Seybold - External Oxygen saturation in Arterial blood by Pulse oximetry 2022-06-28 13:59:00 99 /min Cata Seybo ld - External Systolic blood pressure 2022-05-27 15:50:00 108 mm[Hg] Cata Seybo ld - External Diastolic blood pressure 2022-05-27 15:50:00 66 mm[Hg] Cata Andrewsybo ld - External Heart rate 2022-05-27 15:50:00 72 /min Gerry y Seybold - External Body temperature 2022-05-27 15:50:00 36.67 Roopa Cata Seybold - External Respiratory rate 2022-05-27 15:50:00 14 /min Cata Seybold - External Body height 2022-05-27 15:50:00 162.6 cm Savanah ey Seybold - External Body weight 2022-05-27 15:50:00 78.472 kg Savanah ey Seybold - External BMI 2022-05-27 15:50:00 29.70 kg/m2 Savanah ey Seybold - External Systolic blood pressure 2021-07-01 14:16:00 113 mm[Hg] [facility] Diastolic blood pressure 2021-07-01 14:16:00 72 mm[Hg] [facility] Heart rate 2021-07-01 14:16:00 69 /min [facility] Body temperature 2021-07-01 14:16:00 36.28 Roopa [facility] Respiratory rate 2021-07-01 14:16:00 16 /min [facility] Body height 2021-07-01 14:16:00 162.6 cm [facility] Body weight 2021-07-01 14:16:00 76.386 kg [facility] BMI 2021-07-01 14:16:00 28.91 kg/m2 [facility] Encounters Start Date/Time End Date/Time Encounter Type Admission Type Attending [facility] Care Facility Care Department Encounter ID Source 2020-01-07 00:00:00 2024-03-31 02:58:51 Orders Only Lauren, Porsha A Lauren, Porsha Toney [facility] [employer] [employer] [facility] MATERNAL & CHILD [facility] 1.2.840.114 350.1.13.10 4.2.7.2.686 [id number] [facility] 2023-09-29 11:30:00 2023-09-29 11:30:00 Outpatient EDWIN BREWER [id number] [facility] 2023-09-19 07:00:00 2023-09-19 07:00:00 Outpatient EDWIN BREWER [id number] [facility] 2023-09-19 00:00:00 2023-09-19 00:00:00 Outpatient CATA VERONICA [id number] [facility] 2023-09-12 00:00:00 2023-09-12 00:00:00 Outpatient MD CATA TOBIN [id number] [facility] 2023-09-06 14:15:00 2023-09-06 14:15:00 Outpatient EDWIN BREWER [id number] [facility] 2023-09-05 10:00:00 2023-09-05 10:00:00 Outpatient EDWIN BREWER [id number] [facility] 2023-09-05 10:00:00 2023-09-05 10:00:00 Outpatient EDWIN BREWER [id number] [facility] 2023-09-02 00:00:00 2023-09-02 00:00:00 Outpatient CATA VERONICA [id number] [facility] 2023-08-31 00:00:00 2023-08-31 00:00:00 Outpatient MD CATA TOBIN [id number] [facility] ksenia 2023-08-12 09:30:00 2023-08-12 09:30:00 Outpatient PRABHADARRYL BRYANT [id number] [facility] 2023-08-10 13:30:00 2023-08-10 13:30:00 Outpatient EDWIN BREWER [id number] [facility] ksenia 2023-08-09 10:45:00 2023-08-09 10:45:00 Outpatient MAREN VERONICA [id number] [facility] k[facility] 2023-08-02 00:00:00 2023-08-02 00:00:00 Outpatient MD CATA TOBIN [id number] [facility] ksenia 2023-07-05 14:30:00 2023-07-05 14:30:00 Outpatient [facility] [id number] [facility] 2023-06-27 10:00:00 2023-06-27 10:00:00 Outpatient IVT, SHANTELL VERONICA [id number] [facility] 2023-06-24 10:00:00 2023-06-24 10:00:00 Outpatient CATA VERONICA [id number] [facility] 2023-06-17 14:30:00 2023-06-17 14:30:00 Outpatient EDWIN BREWER [id number] [facility] y[facility]lementine 2023-06-17 00:00:00 2023-06-17 00:00:00 Outpatient TRACEY STOVER [id number] [facility]lementine 2023-06-17 00:00:00 2023-06-17 00:00:00 Outpatient MD CATA TOBIN [id number] [facility] Seksenia 2023-06-16 08:45:00 2023-06-16 08:45:00 Outpatient CATA VERONICA [id number] [facility] 2023-06-15 00:00:00 2023-06-15 00:00:00 Outpatient PRABHADARRYL BRYANT [id number] [facility] 2023-06-14 11:15:00 2023-06-14 11:15:00 Outpatient LAB90 CATA CATA [id number] [facility] 2023-06-14 10:30:00 2023-06-14 10:30:00 Outpatient SHERI TENORIO [facility] [id number] [facility] 2023-06-13 09:00:00 2023-06-13 09:00:00 Outpatient SHERI TENORIO [facility] [id number] [facility] 2023-06-06 11:30:00 2023-06-06 11:30:00 Outpatient OSMAN EDWIN [facility] [id number] [facility] 2023-06-02 09:00:00 2023-06-02 09:00:00 Outpatient CATA VERONICA [id number] [facility] 2023-05-19 00:00:00 2023-05-19 00:00:00 Outpatient ROXANARYNE [facility] [id number] [facility]23-[facility]-13 13:15:00 2023-05-13 13:15:00 Outpatient CATA VERONICA [id number] [facility] 2023-05-09 14:25:00 2023-05-09 14:25:00 Outpatient LAB47 [facility]ATA [facility] [id number] [facility] 2023-05-09 13:45:00 2023-05-09 13:45:00 Outpatient EDWIN BREWER [id number] [facility] 2023-05-07 00:00:00 2023-05-07 00:00:00 Outpatient COBY SHERI [facility] [id number] [facility] 2023-05-06 10:30:00 2023-05-06 10:30:00 Outpatient PRABHADARRYL [id number] [facility] Seybold 2023-04-28 11:00:00 2023-04-28 11:00:00 Outpatient PRABHADARRYL [id number] [facility] Seybold 2023-04-28 00:00:00 2023-04-28 00:00:00 Outpatient GINA BARAJAS [facility]ATA [id number] [facility] 2023-04-27 00:00:00 2023-04-27 00:00:00 Outpatient HUNDL, SHERI [facility] [id number] [facility] 2023-04-20 00:00:00 2023-04-20 00:00:00 Outpatient HUNDL, SHERI [facility] [id number] [facility] 2023-04-14 13:30:00 2023-04-14 13:30:00 Outpatient HUNDL, SHERI [facility] VERON[facility] [id number] [facility] 2023-04-13 11:15:00 2023-04-13 11:15:00 Outpatient LAB90 CATA VERONICA [id number] [facility] 2023-04-13 10:30:00 2023-04-13 10:30:00 Outpatient HUNDL, SHERI [facility] VE[facility] [id number] [facility] 2023-03-17 09:00:00 2023-03-17 09:00:00 Outpatient HUNDL, SHERI [facility] [id number] [facility] 2023-03-03 00:00:00 2023-03-03 00:00:00 Outpatient PREZASNAT [facility] [id number] [facility] 2023-01-19 00:00:00 2023-01-19 00:00:00 Outpatient HUNDL, SHERI VERONICA [id number] [facility] 2022-12-06 14:15:00 2022-12-06 14:15:00 Outpatient STOVERCOLT [id number] [facility] 2022-11-10 13:00:00 2022-11-10 13:00:00 Outpatient VALDEZANDRE TREVIÑO [id number] [facility] 2022-10-25 00:00:00 2022-10-25 00:00:00 Outpatient HUNDL, SHERI VERONICA [id number] [facility] 2022-10-04 14:15:00 2022-10-04 14:15:00 Outpatient STOVERCOLT [id number] [facility] 2022-08-23 11:40:00 2022-08-23 11:40:00 Outpatient MAREN [facility]ATA VERONICA [id number] [facility] 2022-08-10 00:00:00 2022-08-10 00:00:00 Outpatient YESENIA ESPINOZA [facility] [id number] [facility] 2022-07-30 00:00:00 2022-07-30 00:00:00 Outpatient SHERI TENORIO [id number] [facility] 2022-07-26 10:20:00 2022-07-26 10:20:00 Outpatient ESPINOZAMUNDOGREGORIA VERONICA [id number] [facility] 2022-07-26 10:20:00 2022-07-26 10:20:00 Outpatient ESPINOZA, YESENIA [facility] [id number] [facility] 2022-07-19 10:20:00 2022-07-19 10:20:00 Outpatient ESPINOZAYESENIA [facility] [id number] [facility] 2022-07-05 09:15:00 2022-07-05 09:15:00 Outpatient BARBARAFRANKI EUGENE [facility] [id number] [facility]22-[facility]-05 09:00:00 2022-07-05 09:00:00 Outpatient SETH MUHAMMAD [facility] [id number] [facility] 2022-06-28 09:00:00 2022-06-28 09:00:00 Outpatient SHERI TENORIO [id number] [facility] 2022-06-10 00:00:00 2022-06-10 00:00:00 Outpatient SHERI TENORIO [id number] [facility] 2022-06-01 00:00:00 2022-06-01 00:00:00 Outpatient SHERI TENORIO [id number] [facility] 2022-05-30 00:00:00 2022-05-30 00:00:00 Outpatient SHERI TENORIO [id number] [facility] 2022-05-27 11:45:00 2022-05-27 11:45:00 Outpatient LAB90 CATA CATA [id number] [facility] 2022-05-27 11:00:00 2022-05-27 11:00:00 Outpatient SHERI TENORIO [facility] [id number] [facility] 2022-05-27 00:00:00 2022-05-27 00:00:00 Outpatient SHERI TENORIO [facility] [id number] [facility] 2021-07-01 09:00:00 2021-07-01 10:08:46 Office Visit Seth Jameson [facility] [employer] [facility] & CHILD [facility] 1.840.114 350.1.13.10 4.2.7.2.686 [id number] [facility] 2021-07-01 09:00:00 2021-07-01 10:08:46 Outpatient R SETH JAMESON [facility] [id number] [facility] 2021-07-01 09:00:00 2021-07-01 09:00:00 Outpatient R SETH JAMESON [facility] [id number] [facility] 2021-07-01 00:00:00 2021-07-01 00:00:00 Orders Only Doctor Unassigned, [place] [facility] .840.114 350.1.13.10 4.2.7.2.686 [id number] [facility] 2021-02-18 16:45:00 2021-02-18 16:45:00 Outpatient R BLAKE CASTORENA [facility] [id number] [facility] 2020-05-12 13:32:59 2020-05-12 14:19:27 Office Visit Seth Jameson [facility] [employer] [facility] & [facility] 1..840.114 350.1.13.10 4.2.7.2.686 [id number] [facility] 2020-05-12 13:30:00 2020-05-12 13:30:00 Outpatient SETH MUHAMMAD [facility] [id number] [facility] 2020-04-21 13:30:00 2020-04-21 13:30:00 Outpatient JAY MUHAMMADMYRTLEDawna [facility] [id number] [facility] 2020-04-16 09:34:33 2020-04-16 10:05:09 Routine Visit Seth Jameson Nataliia [facility] [employer] [facility] & CHILD [facility] ..840.114 350.1.13.10 4.2.7.2.686 [id number] [facility] 2020-04-16 09:30:00 2020-04-16 09:30:00 Outpatient JAY MUHAMMADTIFFANY [facility] [id number] [facility] 2020-04-08 15:32:53 2020-04-08 16:04:35 Nurse Visit Visit, Doc-[facility] Nurse [facility] [employer] [facility] & CHILD [facility] 1..840.114 350.1.13.10 4.2.7.2.686 [id number] 2020-04-08 15:32:53 2020-04-08 16:04:35 [facility] [employer] [facility] & CHILD [facility] ..840.114 350.1.13.10 4.2.7.2.686 [id number] [facility] 2020-04-08 15:00:00 2020-04-08 15:00:00 Outpatient HERNANDO CLARK [facility] [id number] [facility] 2020-04-07 15:30:00 2020-04-07 15:30:00 Outpatient R [facility] [id number] [facility] 2020-04-04 09:00:00 2020-04-04 09:00:00 Outpatient R [facility] [id number] [facility] 2020-03-27 09:30:00 2020-03-27 09:30:00 Outpatient R [facility] [id number] [facility] 2020-03-26 03:09:00 2020-03-26 03:09:00 Outpatient P CAROLINE [facility] [id number] [facility] 2020-03-26 00:00:00 2020-03-26 00:00:00 Orders Only Doctor Unassigned, [place] [facility] 1.2.840.114 350.1.13.10 4.2.7.2.686 [id number] [facility] 2020-03-26 00:00:00 2020-03-26 00:00:00 Orders Only Doctor Unassigned, [place] [facility] 1.2.840.114 350.1.13.10 4.2.7.2.686 [id number] 2020-03-25 00:00:00 2020-03-25 00:00:[address] [facility] 1.2.840.114 350.1.13.10 4.2.7.2.686 [id number] [facility] 2020-03-25 00:00:00 2020-03-25 00:00:[address] [facility] 1.2.840.114 350.1.13.10 4.2.7.2.686 [id number] 2020-03-24 07:45:00 2020-03-24 07:45:00 Outpatient R HERNANDO AMADO [facility] [id number] [facility] 2020-03-20 10:00:00 2020-03-20 10:00:00 Outpatient R [facility] [id number] [facility] 2020-03-20 08:07:39 2020-03-20 09:16:36 Routine Visit Risk, Doc-Rmchp-N p/High Sharon Fregoso [facility] [employer] [facility] MATERNAL & CHILD [facility] 1.2.840.114 350.1.13.10 4.2.7.2.686 [id number] [facility] 2020-03-20 08:07:39 2020-03-20 09:16:36 Routine Visit Risk, Ang-Rmchp-N p/High [facility] [employer] [facility] MATERNAL & CHILD [facility] 1.2.840.114 350.1.13.10 4.2.7.2.686 [id number] 2020-03-17 08:11:50 2020-03-17 14:41:29 Telemedici ne Visit Faculty, Edwin Banda [facility] [employer] [facility] MATERNAL & CHILD [facility] 1.2.840.114 350.1.13.10 4.2.7.2.686 [id number] [facility] 2020-03-17 08:41:33 2020-03-17 09:30:20 Routine Visit Hernando Amado [facility] [employer] [facility] MATERNAL & CHILD [facility] 1.2.840.114 350.1.13.10 4.2.7.2.686 [id number] [facility] 2020-03-17 09:30:00 2020-03-17 09:30:00 Outpatient R [facility] [id number] [facility] 2020-03-17 08:04:24 2020-03-17 08:41:08 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 Visit Ultrasound, Caroline Schuster Sangeeta [facility] [employer] [facility] MATERNAL & CHILD [facility] 1.2.840.114 350.1.13.10 4.2.7.2.686 [id number] [facility] 2020-03-17 00:00:00 2020-03-17 00:00:00 Abstract JamesonSeth [facility] [employer] [facility] MATERNAL & CHILD [facility] 1.2.840.114 350.1.13.10 4.2.7.2.686 [id number] [facility] 2020-03-13 10:37:25 2020-03-13 11:38:01 Routine Visit Risk, Cassandra-N p/High Sharon Fregoso Toshia [facility] [employer] [facility] MATERNAL & CHILD [facility] 1..840.114 350.1.13.10 4.2.7.2.686 [id number] [facility] 2020-03-13 10:30:00 2020-03-13 10:30:00 Outpatient R [facility] [id number] [facility] 2020-03-10 08:34:56 2020-03-10 10:11:25 Routine Visit Faculty, Tara Conner [facility] [employer] [facility] MATERNAL & CHILD [facility] 1..840.114 350.1.13.10 4.2.7.2.686 [id number] [facility] 2020-03-10 08:30:00 2020-03-10 08:30:00 Outpatient R [facility] [id number] [facility] 2020-03-05 00:00:00 2020-03-05 00:00:00 Abstract Seth Jameson [facility] BU[employer] [facility] MATERNAL & CHILD [facility] 1..840.114 350.1.13.10 4.2.7.2.686 [id number] [facility] 2020-03-04 08:20:34 2020-03-04 09:20:34 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 Visit Ultrasound, Caroline Schuster [facility] [employer] [facility] & CHILD [facility] 1..840.114 350.1.13.10 4.2.7.2.686 [id number] [facility] 2020-03-04 08:30:00 2020-03-04 08:30:00 Outpatient P CAROLINE MICHAUD [facility] [id number] [facility] 2020-02-25 14:38:02 2020-02-25 15:05:49 Routine Visit Seth Jameson [facility] [employer] [facility] & CHILD [facility] 1..840.114 350.1.13.10 4.2.7.2.686 [id number] [facility] 2020-02-25 14:30:00 2020-02-25 14:30:00 Outpatient R SETH JAMESON [facility] [id number] [facility] 2020-02-22 00:00:00 2020-02-22 00:00:00 Telephone Seth Jameson [facility] [employer] [facility] MATERNAL & CHILD [facility] 1..840.114 350.1.13.10 4.2.7.2.686 [id number] [facility] 2020-02-18 08:43:11 2020-02-18 09:17:45 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 Visit Ultrasound, [facility] Caroline Michaud George R [facility] [employer] [facility] & CHILD [facility] 1..840.114 350.1.13.10 4.2.7.2.686 [id number] [facility] 2020-02-18 08:30:00 2020-02-18 08:30:00 Outpatient P CAROLINE MICHAUD [facility] [id number] [facility] 2020-02-18 00:00:00 2020-02-18 00:00:00 Abstract Seth Jameson [facility] [employer] [facility] & CHILD [facility] 1.2840.114 350.1.13.10 4.2.7.2.686 [id number] [facility] 2020-02-11 14:48:56 2020-02-11 15:03:56 Routine Visit Seth Jameson [facility] [employer] [facility] & CHILD [facility] 1.2840.114 350.1.13.10 4.2.7.2.686 [id number] [facility] 2020-02-11 14:45:00 2020-02-11 14:45:00 Outpatient R JAMESONMCKAYLA FernandoASHLEYDawna [facility] [id number] [facility] 2020-02-05 00:00:00 2020-02-05 00:00:00 Abstract Seth Jameson [facility] [employer] [facility] CHILD [facility] 1.840.114 350.1.13.10 4.2.7.2.686 [id number] [facility] 2020-02-04 08:37:37 2020-02-04 09:21:53 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 Visit Ultrasound, AmandaCaroline Hall George R [facility] [employer] [facility] MATERNAL & CHILD [facility] 1.2840.114 350.1.13.10 4.2.7.2.686 [id number] [facility] 2020-02-04 08:30:00 2020-02-04 08:30:00 Outpatient P CAROLINE MICHAUD [facility] [id number] [facility] 2020-01-22 00:00:00 2020-01-22 00:00:00 Abstract Seth Jameson [facility] [employer] [facility] & CHILD [facility] 1.2840.114 350.1.13.10 4.2.7.2.686 [id number] [facility] 2020-01-21 08:09:44 2020-01-21 16:27:48 Telemedici ne Visit Faculty, Tara Conner [facility] [employer] [facility] MATERNAL & CHILD [facility] 1.2840.114 350.1.13.10 4.2.7.2.686 [id number] [facility] 2020-01-21 08:30:37 2020-01-21 09:30:37 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 Visit Ultrasound, Caroline Schuster Shannon M [facility] [employer] [facility] MATERNAL & CHILD [facility] [id number] [id number] [id number] [id number] [facility] 2020-01-21 09:30:00 2020-01-21 09:30:00 Outpatient R [facility] [id number] [facility] 2020-01-08 00:00:00 2020-01-08 00:00:00 Telephone Seth Jameson [facility] [employer] [facility] MATERNAL & CHILD [facility] [id number] [id number] [id number] [id number] [facility] 2020-01-08 00:00:00 2020-01-08 00:00:00 Abstract Seth Jameson [facility] [employer] [facility] & CHILD [facility] [id number] [id number] [id number] [id number] [facility] 2020-01-07 08:43:49 2020-01-07 09:43:49 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 Visit Ultrasound, Caroline Schuster [facility] [employer] [facility] & CHILD [facility] [id number] [id number] [id number] [id number] [facility] 2020-01-07 07:51:26 2020-01-07 09:35:36 Routine Visit Seth Jameson [facility] [employer] [facility] MATERNAL & CHILD [facility] 1.20.114 [id number] 4.2.7.2.686 [id number] [facility] 2020-01-07 07:45:00 2020-01-07 07:45:00 Outpatient R SETH JAMESON [facility] [id number] [facility] 2019-12-26 00:00:00 2019-12-26 00:00:00 Abstract Seth Jameson [facility] [employer] [facility] MATERNAL & CHILD [facility] 1..114 350.1.13.10 4.2.7.2.686 [id number] [facility] 2019-12-24 09:12:49 2019-12-24 10:01:35 Routine Visit Faculty, Barbara Villareal [facility] [employer] [facility] MATERNAL & CHILD [facility] 1.114 [id number] [id number] [id number] [facility] 2019-12-24 09:30:00 2019-12-24 09:30:00 Outpatient R [facility] [id number] [facility] 2019-12-24 08:26:47 2019-12-24 09:26:47 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 Visit Ultrasound, Caroline Schuster Antonio F [facility] [employer] [facility] MATERNAL & CHILD [facility] 1..114 350.1.13.10 4.2.7.2.686 [id number] [facility] 2019-12-24 00:00:00 2019-12-24 00:00:00 Orders Only Doctor Unassigned, [place] [facility] 1..114 350.1.13.10 4.2.7.2.686 [id number] [facility] 2019-12-14 00:00:00 2019-12-14 00:00:00 Abstract Seth Jameson [facility] [employer] [facility] MATERNAL & CHILD [facility] [id number] 350.1.13.10 4.2.7.2.686 [id number] [facility] 2019-12-13 12:56:48 2019-12-13 14:35:15 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 Visit 1, [facility] Room Caroline Michaud George R Jain, Sangeeta [facility] [employer] [facility] MATERNAL & CHILD [facility]ALTH [facility] 1..840.114 350.1.13.10 4.2.7.2.686 [id number] [facility] 2019-12-13 13:00:00 2019-12-13 13:00:00 Outpatient BEVERLY POSEY [facility] [id number] [facility] 2019-12-12 09:30:00 2019-12-12 09:30:00 Outpatient BEVERLY POSEY [facility] [id number] [facility] 2019-12-10 13:00:00 2019-12-10 13:00:00 Outpatient BEVERLY POSEY [facility] [id number] [facility] 2019-12-04 00:00:00 2019-12-04 00:00:00 Telephone Hernando Amado [facility] [employer]TER [facility] & CHILD [facility] 1..840.114 350.1.13.10 4.2.7.2.686 [id number] [facility] 2019-11-27 00:00:00 2019-11-27 00:00:00 Abstract Seth Jameson [facility] [employer] [facility] & CHILD [facility] 1.2.840.114 350.1.13.10 4.2.7.2.686 [id number] [facility] 2019-11-26 08:31:31 2019-11-26 09:31:31 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 Visit Ultrasound, AmandaCaroline Hall George R [facility] [employer] [facility] MATERNAL & CHILD [facility] 1.2.840.114 350.1.13.10 4.2.7.2.686 [id number] [facility] 2019-11-26 09:13:19 2019-11-26 09:28:19 Routine Visit Seth Jameson [facility] [employer] [facility] & CHILD [facility] 1.2840.114 350.1.13.10 4.2.7.2.686 [id number] [facility] 2019-11-26 08:30:00 2019-11-26 08:30:00 Outpatient P CAROLINE MICHAUD [facility] [id number] [facility] 2019-11-12 08:29:08 2019-11-12 09:29:08 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 Visit Ultrasound, Caroline Schuster [facility] [employer] [facility] & CHILD [facility] 1.2840.114 350.1.13.10 4.2.7.2.686 [id number] [facility] 2019-11-12 08:30:00 2019-11-12 08:30:00 Outpatient P [facility] [id number] [facility] 2019-11-12 00:00:00 2019-11-12 00:00:00 Abstract Seth Jameson [facility] [employer] [facility] MATERNAL & CHILD [facility] 1.2840.114 350.1.13.10 4.2.7.2.686 [id number] [facility] 2019-10-29 08:50:24 2019-10-29 09:05:24 Routine Visit Seth Jameson [facility] [employer] [facility] & CHILD [facility] 1.2.840.114 350.1.13.10 4.2.7.2.686 [id number] [facility] 2019-10-29 08:45:00 2019-10-29 08:45:00 Outpatient R SETH JAMESON [facility] [id number] [facility] 2019-09-25 00:00:00 2019-09-25 00:00:00 Abstract Seth Jameson [facility] [employer] [facility] MATERNAL & CHILD [facility] 1.2.840.114 350.1.13.10 4.2.7.2.686 [id number] [facility] 2019-09-24 08:08:55 2019-09-24 16:23:34 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 Visit Ultrasound, Caroline Schuster [facility] [employer] [facility] MATERNAL & CHILD [facility] 1.2.840.114 350.1.13.10 4.2.7.2.686 [id number] [facility] 2019-09-24 10:08:28 2019-09-24 10:58:19 Routine Visit Seth Jameson [facility] [employer] [facility] & CHILD [facility] 1.2840.114 350.1.13.10 4.2.7.2.686 [id number] [facility] 2019-09-24 10:15:00 2019-09-24 10:15:00 Outpatient R SETH JAMESON [facility] [id number] [facility] 2019-09-13 10:11:13 2019-09-13 10:28:52 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 Visit Lab/Pedi, Chante Ball [facility] BU[employer]TER [facility] MATERNAL & CHILD [facility] 1.2.840.114 350.1.13.10 4.2.7.2.686 [id number] [facility] 2019-09-13 10:00:00 2019-09-13 10:00:00 Outpatient R [facility] [id number] [facility] 2019-09-13 00:00:00 2019-09-13 00:00:00 Clinic Assessment FransiscoRonda kwok [facility] [employer] [facility] MATERNAL & CHILD [facility] 1.2.840.114 350.1.13.10 4.2.7.2.686 [id number] [facility] 2019-09-13 00:00:00 2019-09-13 00:00:00 Clinic Assessment FransiscoRonda kwok [facility] [employer] [facility] MATERNAL & CHILD [facility] 1.2.840.114 350.1.13.10 4.2.7.2.686 [id number] [facility] 2019-09-10 00:00:00 2019-09-10 00:00:00 Telephone Seth Jameson [facility] [employer] [facility] MATERNAL & CHILD [facility] 1.2.840.114 350.1.13.10 4.2.7.2.686 [id number] [facility] 2019-08-29 00:00:00 2019-08-29 00:00:00 Telephone Seth Jameson [facility] [employer] [facility] & CHILD [facility] 1.2.840.114 350.1.13.10 4.2.7.2.686 [id number] [facility] 2019-08-27 10:20:56 2019-08-27 11:41:45 Initial Visit Seth Jameson [facility] [employer] [facility] MATERNAL & CHILD [facility] 1.2.840.114 350.1.13.10 4.2.7.2.686 [id number] [facility] 2019-08-27 09:30:00 2019-08-27 09:30:00 Outpatient R SETH JAMESON [facility] [id number] [facility] 2019-08-27 00:00:00 2019-08-27 00:00:00 Orders Only Doctor Unassigned, [place] [facility] [id number] 350.1.13.10 [id number] [id number] [facility] Notes Date/Time Note Provider Source 2023-09-29 11:33:21 Chief Complaint Patient presents with Post-op Visit DATE 09/19/2023 Cami Stevenson CMA II [facility] 2023-09-05 10:11:47 Chief Complaint Patient presents with Pre-Op Exam [facility] 2023-06-14 10:33:49 Chief Complaint Patient presents with Physical Patient is fasting. No other issues to discuss Lamar Jameson MA II [facility] 2023-05-09 13:52:17 Chief Complaint Patient presents with Menstrual Problem Irregular cycles for about 6 months, has always had heavy cycles but can last from 5-7 days but now has been getting some spotting in between periods. Her cycle pattern has a lot changed. Cramping is about a 4 nothing too bad, changes her pads often during her cycle almost every hour. Has been on various types of bc before but does not think its related Bridget Rae CMA I [facility] 2023-04-13 10:16:31 Chief Complaint Patient presents with Referral She is wanting a referral to Gynocologist for irregular menstraul cycles. Lamar Jameson MA II [facility]
[2024-05-28] MEDS ORDERED: LIDOCAINE 1% 20 ML MDV ONE (23:23)
[2024-05-28] MEDS ORDERED: TDAP (DIPHTH,PERTUSS(ACELL),TET VAC) 0.5 ML VIAL IMVAC ONE (23:23)
--- NOTE | 2024-05-29 00:23 | ER ---
Nurse's Notes [facility] Name: Carlos Davalos Age: 28 yrs Sex: Female : 1995 Arrival Date: 05/28/2024 Time: 22:30 Bed 9 Private MD: Diagnosis: Laceration without foreign body of left little finger without damage to nail Presentation: 05/28 22:51 Chief complaint: Patient states: cut lt 5th finger on weight rack at the gym approx dd2 10am this morning. Coronavirus screen: At this time, the client does not indicate any symptoms associated with coronavirus-19. Ebola Screen: No symptoms or risks identified at this time. Initial Sepsis Screen: Does the patient meet any 2 criteria? No. Patient's initial sepsis screen is negative. Does the patient have a suspected source of infection? No. Patient's initial sepsis screen is negative. Risk Assessment: Do you want to hurt yourself or someone else? Patient reports no desire to harm self or others. Onset of symptoms was May 28, 2024 at 10:00. 22:51 Method Of Arrival: Ambulatory dd2 22:51 Acuity: LEILA 4 dd2 Triage Assessment: 22:52 General: Appears in no apparent distress. Behavior is calm, cooperative, appropriate dd2 for age. Pain: Complains of pain in medial aspect of left fingers Pain does not radiate. Pain currently is 4 out of 10 on a pain scale. EENT: No deficits noted. No signs and/or symptoms were reported regarding the EENT system. Neuro: No deficits noted. Rush Agitation-Sedation Scale (RASS): 0 - Alert and Calm Level of Consciousness is awake, alert, obeys commands, Oriented to person, place, time, situation, Appropriate for age. Cardiovascular: No deficits noted. Patient's skin is warm and dry. Respiratory: No deficits noted. Airway is patent Respiratory effort is even, unlabored, Respiratory pattern is regular, symmetrical. GI: No deficits noted. No signs and/or symptoms were reported involving the gastrointestinal system. Abdomen is non-distended. : No deficits noted. No signs and/or symptoms were reported regarding the genitourinary system. Derm: Wound noted medial aspect lt 5th finger Wound is laceration Reports pain that is 4 out of 10 on a pain scale. Musculoskeletal: Circulation, motion, and sensation intact. Range of motion: intact in all extremities. Injury Description: Laceration sustained to medial aspect lt 5th finger is jagged, 2.6 to 7.5 cm long, was sustained 6-12 hours ago. a small amount of bleeding noted at this time. 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 Patient has never been vaccinated. - Infectious Disease History:: Denies. - Social history:: Smoking status: Patient denies any tobacco usage or history of. Screenin:31 [facility] ED Fall Risk Assessment (Adult) History of falling in the last 3 months, bm8 including since admission No falls in past 3 months (0 pts) Confusion or Disorientation No (0 pts) Intoxicated or Sedated No (0 pts) Impaired Gait No (0 pts) Mobility Assist Device Used No (0 pt) Altered Elimination No (0 pt) Score/Fall Risk Level 0 - 2 = Low Risk Oriented to surroundings, Maintained a safe environment, Educated pt \T\ family on fall prevention, incl call for assistance when getting out of bed, Assessed \T\ reinforced patient's understanding of fall precautions, Hourly rounding (assess needs \T\ fall precautionary measures) done, Used ambulatory aids as needed (educated on \T\ assisted with), Used gait belt as appropriate. Abuse screen: Denies threats or abuse. Nutritional screening: No deficits noted. Tuberculosis screening: No symptoms or risk factors identified. Assessment: 23:31 Reassessment: Patient appears in no apparent distress at this time. Patient and/or bm8 family updated on plan of care and expected duration. Pain level reassessed. Patient is alert, oriented x 3, equal unlabored respirations, skin warm/dry/pink. 05/29 00:41 Reassessment: Patient and/or family updated on plan of care and expected duration. Pain ha1 level reassessed. Patient is alert, oriented x 3, equal unlabored respirations, skin warm/dry/pink. WOUND CARE PERFORMED. Vital Signs: 05/28 22:51 BP 102 / 53; Pulse 62; Resp 15; Temp 98.7; Pulse Ox 100% ; Weight 70.31 kg; Height 5 dd2 ft. 4 in. ; Pain 4/10; 05/29 00:41 BP 108 / 61; Pulse 60; Resp 17 S; Pulse Ox 100% on R/A; ha1 05/28 22:51 Body Mass Index 26.61 (70.31 kg, 162.56 cm) dd2 05/28 22:51 Pain Scale: Adult dd2 [place] Coma Score: 05/28 23:31 Eye Response: spontaneous(4). Motor Response: obeys commands(6). Verbal Response: bm8 oriented(5). Total: 15. ED Course: 22:30 Patient arrived in ED. jj6 22:39 Hanna Joseph PA-C is PHCP. sb4 22:39 Luis Izquierdo MD is Attending Physician. sb4 22:52 Triage completed. dd2 22:52 Arm band placed on right wrist. dd2 23:30 Ajay Carlton, RN is Primary Nurse. bm8 23:31 Patient has correct armband on for positive identification. Bed in low position. Call bm8 light in reach. Side rails up X 1. Provided Education on: post er care. 23:31 Assist provider with laceration repair on left hand and dorsal aspect of middle phalanx bm8 of left little finger that was 2.5 cm. or less using sutures. Set up tray. Performed by Hanna Joseph PA-C Dressed with band aid, Neosporin, Patient tolerated well. Patient did not have IV access during this emergency room visit. Administered Medications: 23:31 Drug: Boostrix Tdap IM 0.5 ml IM once; as a single dose Route: IM; Site: right deltoid; bm8 05/29 00:43 Follow up: Response: (VIS) Vaccine information sheet provided today. Questions and/or ha1 concerns addressed. VIS edition date: Sep 19, 2020.; No adverse reaction 00:23 Drug: Lidocaine Infiltration (1 %) 5 ml 5 ml Infiltration once; to bedside Volume: 5 sb4 ml; Route: Infiltration; 00:43 Follow up: Response: No adverse reaction ha1 Medication: 04/14 23:31 Vaccine Information Statement (VIS) provided today. Questions and/or concerns bm8 addressed. VIS edition date: September 19, 2020. Outcome: 05/29 00:22 Discharge ordered by . sb4 00:42 Discharged to home ambulatory, ha1 00:42 Condition: stable 00:42 Discharge instructions given to patient, Instructed on discharge instructions, follow up and referral plans. Demonstrated understanding of instructions, follow-up care, 00:43 Patient left the ED. ha1 Signatures: Ronda HunterjGiulia Horne, RN RN ha1 Hanna Joseph, PA-C PA-C sb4 Ajay Carlton, RN RN bm8 GAYE BLANDON RN RN dd2
--- NOTE | 2024-05-29 00:23 | EDPHYS ---
Physician Documentation [facility] Name: Carlos Davalos Age: 28 yrs Sex: Female : 1995 Arrival Date: 05/28/2024 Time: 22:30 Bed 9 Private MD: ED Physician Luis Izquierdo HPI: 05/28 22:58 This 28 yrs old Female presents to ER via Ambulatory with complaints of Finger sb4 Injury. 22:58 The patient has a laceration related to: working out occurred gym, and there are no sb4 complicating factors. The injury was accidental. The laceration(s) is(are) located on the dorsal aspect of middle phalanx of left little finger. Onset: The symptoms/episode began/occurred this morning. Associated signs and symptoms: The patient has no apparent associated signs or symptoms. The patient has not experienced similar symptoms in the past. The patient has not recently seen a physician. 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 Patient has never been vaccinated. - Infectious Disease History:: Denies. - Social history:: Smoking status: Patient denies any tobacco usage or history of. ROS: 22:58 Constitutional: Negative for fever, chills, and weight loss, sb4 22:58 Skin: Positive for laceration(s), of the dorsal aspect of middle phalanx of left little finger, 22:58 All other systems are negative, Exam: 22:58 Constitutional: This is a well developed, well nourished patient who is awake, alert, sb4 and in no acute distress. Head/Face: Normocephalic, atraumatic. Eyes: Extra-ocular motions intact. Periorbital areas with no swelling, redness, or edema. ENT: Mucous membranes moist. Respiratory: No increased work of breathing, no retractions or nasal flaring. 22:58 Skin: injury, laceration(s), the wound is approximately 3 cm(s), with a depth of .5 cm(s), of the medial aspect of left fingers, that can be described as clean, no foreign body, irregular, without bleeding, Vital Signs: 22:51 BP 102 / 53; Pulse 62; Resp 15; Temp 98.7; Pulse Ox 100% ; Weight 70.31 kg; Height 5 dd2 ft. 4 in. ; Pain 4/10; 05/29 00:41 BP 108 / 61; Pulse 60; Resp 17 S; Pulse Ox 100% on R/A; ha1 05/28 22:51 Body Mass Index 26.61 (70.31 kg, 162.56 cm) dd2 05/28 22:51 Pain Scale: Adult dd2 [place] Coma Score: 05/28 23:31 Eye Response: spontaneous(4). Motor Response: obeys commands(6). Verbal Response: bm8 oriented(5). Total: 15. Laceration: 05/29 00:21 Wound Repair of 3cm ( 1.2in ) subcutaneous laceration to dorsal aspect of middle sb4 phalanx of left little finger. Skin/tissue flap noted.. Distal neuro/vascular/tendon intact. Anesthesia: Local anesthetic administered with 4 mls of 1% lidocaine. Wound prep: Simple cleansing with hibiclenz by me, Wound irrigation with saline by me, Wound margin revised minimally. Skin closed with 3 5-0 Prolene using simple sutures and sterile technique. Dressed with non-adherent dressing. Patient tolerated well. MDM: 05/28 22:42 Medical Screening Exam initiated sb4 05/29 00:21 Data reviewed: vital signs, nurses notes, and as a result, I will discharge patient. sb4 Counseling: I had a detailed discussion with the patient and/or guardian regarding the historical points, exam findings, and any diagnostic results supporting the discharge/admit diagnosis, the need for outpatient follow up, for suture removal in 10 days. 05/28 22:58 Order name: Setup Suture Tray; Complete Time: 23:33 sb4 05/29 00:21 Order name: Wound dressing; Complete Time: 00:41 sb4 Administered Medications: 05/28 23:31 Drug: Boostrix Tdap IM 0.5 ml IM once; as a single dose Route: IM; Site: right deltoid; bm8 05/29 00:43 Follow up: Response: (VIS) Vaccine information sheet provided today. Questions and/or ha1 concerns addressed. VIS edition date: Sep 19, 2020.; No adverse reaction 00:23 Drug: Lidocaine Infiltration (1 %) 5 ml 5 ml Infiltration once; to bedside Volume: 5 sb4 ml; Route: Infiltration; 00:43 Follow up: Response: No adverse reaction ha1 Disposition: 03:48 Co-signature as Attending Physician, Luis Izquierdo MD I agree with the assessment sp4 and plan of care. I reviewed the patient's care provided by the Advanced Practice Provider and agree with the diagnosis and treatment plan. Disposition Summary: 05/29/24 00:22 Discharge Ordered Notes: Location: Home sb4 Problem: new sb4 Symptoms: have improved sb4 Condition: Stable sb4 Diagnosis - Laceration without foreign body of left little finger without damage to nail sb4 Followup: sb4 - With: Private Physician - When: 7 - 10 days - Reason: Staple/Suture removal Discharge Instructions: - Discharge Summary Sheet sb4 - Laceration Care, Adult, [id number] sb4 Forms: - Patient Portal Instructions sb4 - Leadership Thank You Letter sb4 Signatures: Hanna Joseph PA-C PAJackelin sb4 Luis Izquierdo MD MD sp4 Ajay Carlton RN RN bm8 GAYE BLANDON RN RN dd2 Giulia Cannon RN ha1
[2024-05-29 01:04] VITALS: TEMP 98.7; O2SAT 100
[2024-05-29 01:06] VITALS: BP 108/61
== END 2024-05-29 00:43 | disposition home or self-care (01) ==
LOC: ER 22:30
DX: S61.217A Laceration without foreign body of left little finger without damage to nail, initial encounter (principal)
CPT/HCPCS: 90715; 12002; J2003